=== PATIENT | female | born 1955 | race Caucasian/White ===

== ENCOUNTER → 2017-12-20 | Outpatient (CLI) | payer BC | END | disposition home or self-care (01) | LOC: C.LABSPEC 17:08 → C.PATHSPEC 17:08 | PROVIDERS: ATTEND Urology | DX: R31.0 Gross hematuria (principal); R30.0 Dysuria ==

== ENCOUNTER → 2018-01-22 | Outpatient (CLI) | payer BC ==
[~2018-01-22] MED LIST: ALPR-411 PO; AMLO-110 PO; CITA40TA4 PO; DTR5 PO; HYDR25TA4 PO; LISI-725 PO; METO100T14 PO; OMEP20TA PO; OPTIRAY 320 IV PRN; PHEN-876 PO; POTA10CA28 PO; PRAV20TA PO; TERA5CAP PO
--- NOTE | 2018-01-22 13:47 | DIAGNOSTIC IMAGING REPORT ---
CT UROGRAM CLINICAL HISTORY: Hematuria. Recurrent bladder infections. COMPARISON STUDY: No priors. TECHNIQUE: Before and following the IV administration of 120 cc of Optiray 320, CT urogram of the abdomen and pelvis is performed from the lung bases to the proximal femora. Images are reviewed in the axial, sagittal, and coronal planes. IV contrast was administered without complication. A dose lowering technique was utilized adhering to the principles of ALARA. CT DOSE: 684.01 mGycm FINDINGS: Lung bases: The heart is top normal in size and without pericardial effusion. There are trace pleural effusions with dependent atelectasis. Liver: The contrast-enhanced liver is normal in size, contour, and attenuation. There is no intrahepatic biliary ductal dilatation. The hepatic veins and portal veins are patent. Gallbladder: Unremarkable. Spleen: Normal in size and attenuation. Pancreas: Unremarkable. Adrenal glands: Unremarkable. Kidneys and ureters: The contrast enhanced kidneys are normal in size. There is mild fullness of the renal collecting system bilaterally without hydronephrosis. There are small bilateral extrarenal pelvises. There are no renal calculi identified on the unenhanced images. The kidneys enhance and excrete symmetrically. There is no enhancing renal cortical mass lesion identified. There is no evidence of urothelial lesion within the renal pelvis bilaterally or along the course of either ureter. There is a circumaortic left renal vein. Abdominal vasculature: The abdominal aorta is normal in course and caliber noting mild atherosclerotic calcification. Bowel: There is moderate constipation. No bowel obstruction is seen. There is diverticulosis of the sigmoid colon. Matted bowel loops are noted in the pelvis with mild surrounding inflammation suggested. The appendix is well-visualized and normal. Peritoneum: There is a small volume of free fluid in the pelvis. No intraperitoneal free air is seen. Lymphadenopathy: None. Pelvic viscera: The bladder wall appears circumferentially thickened and mild pericystic inflammation is identified. The uterus is surgically absent. No adnexal lesion is seen. Skeletal structures: The skeletal structures are osteopenic. Mild to moderate lumbosacral spondylosis is observed. No lytic or blastic lesions are seen. IMPRESSION: 1. The bladder wall appears thickened and there is pericystic inflammatory stranding. Correlate clinically and with urinalysis for evidence of cystitis. 2. The kidneys are normal in size and without hydronephrosis. No renal calculi are identified. 3. There is no enhancing renal cortical mass, and no evidence of urothelial lesion is seen within the renal pelvis bilaterally or along the course of ureters. 4. Moderate to severe constipation. 5. There are matted loops of small bowel and colon identified in the pelvis with surrounding inflammatory change. This is not well evaluated due to the matted bowel loops, likely enteric contrast, and a paucity of pelvic fat. There is sigmoid diverticulosis in this region as well as a small volume of free fluid in the pelvis. This may be chronic, or could represent bowel pathology such as colitis or diverticulitis, or possibly a primary pelvic process such as pelvic inflammatory disease. Clinical correlation will be essential. If further assessment is desired a repeat CT scan with oral and IV contrast could be considered. 6. Trace pleural effusions. Electronically signed by: Jose Alberto Loco M.D. 01/22/2018 1:45 PM Dictated Date/Time: 01/22/2018 1:23 PM
== END | disposition home or self-care (01) ==
LOC: C.CTS 12:53
PROVIDERS: ATTEND Urology
DX: N32.9 Bladder disorder, unspecified (principal); R31.0 Gross hematuria

== ENCOUNTER → 2018-01-28 | Outpatient (CLI) | payer BC ==
[~2018-01-28] MED LIST changes: +CEPH500C2 PO; +OXYC7.5T65 PO; +SULF1TAB92 PO
--- NOTE | 2018-01-28 08:06 | DIAGNOSTIC IMAGING REPORT ---
ABDOMEN AND PELVIS CT WITH IV AND ORAL CONTRAST CT DOSE: 272.26 mGy.cm HISTORY: Possible pelvic inflammation seen on prior CT. Follow-up. TECHNIQUE: Multiaxial CT images of the abdomen and pelvis were performed following the use of intravenous and oral contrast. A dose lowering technique was utilized adhering to the principles of ALARA. COMPARISON STUDY: Abdomen and pelvis CT 01/22/2018. FINDINGS: The lung bases are clear. No suspicious lytic or blastic osseous lesions. The liver, gallbladder, pancreas, spleen, and adrenal glands are unremarkable. The kidneys enhance normally. No hydronephrosis. No retroperitoneal lymphadenopathy. There is a left circumaortic renal vein. Mild bladder wall thickening persists. The uterus appears surgically absent. A few colonic diverticula. Moderate stool within the colon. No bowel wall thickening or obstruction. Normal appendix. IMPRESSION: 1. No bowel wall thickening or obstruction. 2. Mild bladder wall thickening, unchanged. This favors a cystitis. Recommend correlation with urinalysis. 3. Colonic diverticulosis. Electronically signed by: Yfn Mitchell M.D. 01/28/2018 8:05 AM Dictated Date/Time: 01/28/2018 7:58 AM
== END | disposition home or self-care (01) ==
LOC: C.CTS 07:08
PROVIDERS: ATTEND Urology
DX: R31.0 Gross hematuria (principal); K57.92 Diverticulitis of intestine, part unspecified, without perforation or abscess without bleeding; N32.89 Other specified disorders of bladder

== ENCOUNTER 2018-02-07 07:28 | Day surgery (SDC) | payer BC ==
[2018-01-28 08:39] VITALS: Ht 167.6 cm; Wt 56.8 kg
--- NOTE | 2018-01-28 09:06 | PAT Medication Instructions ---
Service Date Jan 28, 2018. Current Home Medication List Alprazolam (Xanax), 0.25 MG PO UD PRN for ANXIETY Amlodipine (Norvasc), 5 MG PO HS Citalopram (Citalopram Hydrobromide), 1 TAB PO QAM Hydrochlorothiazide (Hctz), 25 MG PO QAM Lisinopril (Zestril), 20 MG PO BID Metoprolol Tartrate (Lopressor) (Lopressor), Unknown Dose PO BID Omeprazole (Omeprazole), 40 MG PO BID Oxybutynin Chloride (Oxybutynin Chloride), 1 TAB PO QAM Phenazopyridine HCl (Pyridium), 200 MG PO UD PRN for Bladder pain Potassium Chloride (Micro-K Ext Rel), 10 MEQ PO BID Pravastatin (Pravachol ), 40 MG PO QPM Terazosin (Hytrin), 5 MG PO QPM Medication Instructions For Your Scheduled Surgery - Hold the following medications 24 hours prior to surgery: Lisinopril (Zestril), 20 MG PO BID (DO NOT TAKE THE NIGHT BEFORE OR THE MORNING OF SURGERY) - Hold the following medications the morning of surgery: Hydrochlorothiazide (Hctz), 25 MG PO QAM Oxybutynin Chloride (Oxybutynin Chloride), 1 TAB PO QAM Phenazopyridine HCl (Pyridium), 200 MG PO UD PRN for Bladder pain Potassium Chloride (Micro-K Ext Rel), 10 MEQ PO BID - Take the following medications the morning of surgery with a sip of water: Alprazolam (Xanax), 0.25 MG PO UD PRN for ANXIETY (IF NEEDED) Citalopram (Citalopram Hydrobromide), 1 TAB PO QAM Metoprolol Tartrate (Lopressor) (Lopressor), Unknown Dose PO BID Omeprazole (Omeprazole), 40 MG PO BID - Take the following medications as scheduled the night before surgery: Alprazolam (Xanax), 0.25 MG PO UD PRN for ANXIETY (IF NEEDED) Amlodipine (Norvasc), 5 MG PO HS Metoprolol Tartrate (Lopressor) (Lopressor), Unknown Dose PO BID Omeprazole (Omeprazole), 40 MG PO BID Phenazopyridine HCl (Pyridium), 200 MG PO UD PRN for Bladder pain (IF NEEDED) Potassium Chloride (Micro-K Ext Rel), 10 MEQ PO BID Pravastatin (Pravachol ), 40 MG PO QPM Terazosin (Hytrin), 5 MG PO QPM If you have any questions please call us at [phone] or [phone] or [phone]
[2018-01-28 09:22] LABS: BASO % 0.3 %; BASO ABS # 0.03 K/uL (0-0.2); EOS % 6.1 %; HEMATOCRIT 38.6 % (37-47); HEMOGLOBIN 13.5 g/dL (12.0-16.0); IG# 0.03 K/uL (0.00-0.02); LYMPH % 13.6 %; LYMPH ABS # 1.56 K/uL (1.2-3.4); MEAN CELL VOLUME 91.3 fL (80-100); MEAN CORPUSCULAR HEMOGLOBIN 31.9 pg (25-34); MEAN PLATELET VOLUME 8.6 fL (7.4-10.4); MONO % 10.7 %; MONO ABS # 1.23 K/uL (0.11-0.59); NEUT ABS # 7.94 K/uL (1.4-6.5); PLATELET COUNT 246 K/uL (130-400); RED CELL DISTRIBUTION WIDTH CV 12.2 % (11.5-14.5); RED CELL DISTRIBUTION WIDTH SD 40.6 fL (36.4-46.3); WHITE BLOOD COUNT 11.49 K/uL (4.8-10.8)
[2018-01-28 09:30] LABS: CALCIUM 9.1 mg/dl (8.5-10.1); CREATININE 0.66 mg/dl (0.60-1.20); POTASSIUM 4.3 mmol/L (3.5-5.1)
--- NOTE | 2018-01-28 09:36 | DIAGNOSTIC IMAGING REPORT ---
CHEST 2 VIEWS ROUTINE CLINICAL HISTORY: Preoperative evaluation. COMPARISON STUDY: Chest radiograph November 02, 2011. FINDINGS: Lung volumes are normal. No pneumothorax or pleural effusion is noted. There is no consolidation or evidence for pulmonary edema. Cardiomediastinal silhouette is normal. Pulmonary vascularity is normal. IMPRESSION: No acute cardiopulmonary findings. Electronically signed by: Jose A Starr M.D. 01/28/2018 9:35 AM Dictated Date/Time: 01/28/2018 9:31 AM
[~2018-02-07] VITALS: Ht 167.6 cm; Wt 56.8 kg
[~2018-02-07 07:28] MED LIST changes: +CEFAZOLIN 2000MG IV PUSH 15 ML IV SCH; -CEPH500C2 PO; +LACTATED RINGER'S 1000ML 1,000 ML IV SCH; -OPTIRAY 320 IV PRN; -OXYC7.5T65 PO; -SULF1TAB92 PO
[2018-02-07] MEDS ORDERED: SULF1TAB92 PO (07:56)
[2018-02-07 08:06] VITALS: BP 124/65; PULSE 53; TEMP 36.7; O2SAT 98
--- NOTE | 2018-02-07 08:22 | History & Physical Bridge Note ---
H&P Re-Evaluation Bridge Note: I have examined the patient, reviewed the History & Physical and in the interval since the performance of the History & Physical I have noted the following changes of clinical significance: No changes noted
--- NOTE | 2018-02-07 08:26 | Discharge Instructions ---
Discharge Instructions Date of Service Feb 07, 2018. Admission Reason for Admission: Hematuria, Bladder Lesion Discharge Discharge Diagnosis / Problem: Hematuria, Bladder Lesion Discharge Goals Goal(s): Decrease discomfort, Improve function Activity Recommendations Activity Limitations: resume your previous activity Lifting Limitations: gradually increase as tolerated Exercise/Sports Limitations: as tolerated Shower/Bathe: no limitations . Instructions / Follow-Up Instructions / Follow-Up May have blood in urine. May have pelvic pain or discomfort. Call if any fevers or chills. Call if unable to void. Current Hospital Diet Patient's current hospital diet: Discharge Diet Recommended Diet: Regular Diet Procedures Procedures Performed: Cystoscopy, Bladder Biopsy Pending Studies Studies pending at discharge: no Medical Emergencies . Who to Call and When: Medical Emergencies: If at any time you feel your situation is an emergency, please call 911 immediately. . Non-Emergent Contact Non-Emergency issues call your: Primary Care Provider, Urologist Call Non-Emergent contact if: you have a fever, temperature is above 101, temperature is above 101.5, your pain is not controlled, your pain is worsening . . "Provider Documentation" section prepared by César Cool. .
[2018-02-07] MEDS ORDERED: CEPH500C2 PO (08:29)
[2018-02-07] MEDS ORDERED: OXYC7.5T65 PO (08:29)
[2018-02-07] MEDS ORDERED: OXYCODONE/ACETAMINOPHEN 7.5-325 TAB PO PRN (08:30)
[2018-02-07] MEDS ORDERED: NURSING VERBAL MED ORDER ONE (08:45)
[2018-02-07] MEDS ORDERED: MIDAZOLAM HCL 1 MG/ML 2ML VIAL ONE (09:00)
[2018-02-07] MEDS ORDERED: FENTANYL CITRATE INJ 50 MCG/1 ML 2 ML VIAL ONE ×2 (09:00→10:30)
[2018-02-07] MEDS ORDERED: Cysto-Conray II 17.2% 250ML BOTTLE ONE (09:37)
[2018-02-07] MEDS ORDERED: ONDANSETRON INJ 2 MG/ML 2 ML VIAL ONE (10:14)
[2018-02-07] MEDS ORDERED: PROPOFOL IV EMULSION 10 MG/ML 20 ML VIAL IV ONE (10:14)
[2018-02-07] MEDS ORDERED: DEXAMETHASONE SOD INJ 4 MG/ML VIAL ONE (10:14)
--- NOTE | 2018-02-07 10:17 | [facility] Operative Report ---
Operative Report Operative Date Feb 07, 2018. Pre-Operative Diagnosis Bladder Lesion, Hematuria Post-Operative Diagnosis Same Procedure(s) Performed Cystoscopy, Bladder Biopsy, Fulguration Surgeon Travon Estimated Blood Loss Minimal Findings Bladder lesions on midline trigone/bladder base. Images captured. Specimens Bladder Biopsy bladder base/trigone Drains None Anesthesia Type General Complication(s) none Disposition Recovery Room / PACU Indications Bladder lesions found during workup for hematuria. Risks and benefits discussed. Description of Procedure Patient was consented and brought back to the operating room. Patient was placed under anesthesia in the supine position and moved to the dorsal lithotomy position. Patient was prepped and draped in the regular sterile fashion. A time out was completed. A 30degree Cystoscope was placed into the bladder and the entire bladder was examined. The UO's were identified. The bladder lesions previously seen on office cystoscopy appeared to improve with time and treatment. Biopsy of the lesion was completed with cold cup biopsy x 3. These were sent for pathologic analysis. A bugbee cautery was selected and the biopsy sites were fulgurated with fulguration of the surrounding edges. Care was taken to identify the ureteral orifice bilaterally. No other areas of concern were noted. No masses, lesions, or other findings. The bladder was emptied. The scope was removed. The patient was cleaned, aroused from anesthesia, and transferred to the pacu in stable condition having tolerated the procedure well with no complications. I was present and participated in all aspects of the procedure. The patient will be monitored in the PACU until transferred. I attest to the content of the Intraoperative Record and any orders documented therein. Any exceptions are noted below.
--- NOTE | 2018-02-07 10:50 | Anesthesiology Progress Note ---
Anesthesia Post Op Note Date & Time Feb 07, 2018 at 10:49 Vital Signs Pain Intensity: 6 Vital Signs Past 12 Hours Date Time Temp Pulse Resp B/P (MAP) Pulse Ox O2 Delivery O2 Flow Rate FiO2 02/07/18 10:41 85 14 127/83 93 02/07/18 10:41 86 14 02/07/18 10:36 85 16 95 02/07/18 10:36 85 16 02/07/18 10:31 86 15 130/85 96 02/07/18 10:31 86 15 02/07/18 10:27 142/90 02/07/18 10:26 89 25 98 02/07/18 10:26 36.0 90 12 142/90 95 Room Air 02/07/18 10:26 92 25 02/07/18 08:06 36.7 53 16 124/65 (84) 98 Room Air Notes Mental Status: alert / awake / arousable, participated in evaluation Pt Amnestic to Procedure: Yes Nausea / Vomiting: adequately controlled Pain: adequately controlled Airway Patency, RR, SpO2: stable & adequate BP & HR: stable & adequate Hydration State: stable & adequate Anesthetic Complications: no major complications apparent
[2018-02-07] MEDS ORDERED: FENTANYL CITRATE INJ 50 MCG/1 ML 2 ML VIAL IV PRN (11:00)
[2018-02-07] MEDS ORDERED: ONDANSETRON INJ 2 MG/ML 2 ML VIAL IV PRN (11:00)
[2018-02-07] MEDS ORDERED: ATROPINE SULFATE 0.1 MG/ML 5ML SYR IV PRN (11:00)
[2018-02-07] MEDS ORDERED: EpHEDrine SULFATE INJ 50 MG/ML AMP IV PRN (11:00)
[2018-02-07 11:20] VITALS: BP 116/69; PULSE 81; TEMP 37.1; O2SAT 95
[2018-02-07 11:40] VITALS: BP 134/80; PULSE 71; TEMP 37.1; O2SAT 97
[2018-02-07 12:05] VITALS: BP 115/70; PULSE 71; TEMP 36.4; O2SAT 96
== END 2018-02-07 12:28 | disposition home or self-care (01) ==
LOC: C.ACU 07:28
PROVIDERS: ATTEND Urology
DX: N32.9 Bladder disorder, unspecified (principal); R31.0 Gross hematuria; N30.10 Interstitial cystitis (chronic) without hematuria; R30.0 Dysuria; K63.89 Other specified diseases of intestine; I10 Essential (primary) hypertension; N39.0 Urinary tract infection, site not specified; Z90.710 Acquired absence of both cervix and uterus; Z82.49 Family history of ischemic heart disease and other diseases of the circulatory system; Z80.42 Family history of malignant neoplasm of prostate; Z88.0 Allergy status to penicillin; F41.9 Anxiety disorder, unspecified; F32.9 Major depressive disorder, single episode, unspecified; E78.5 Hyperlipidemia, unspecified; Z87.440 Personal history of urinary (tract) infections